=== PATIENT | female | born 1985 | race American Indian/Alaskan Native ===

== ENCOUNTER 2018-12-22 13:50 | Emergency (ER) | payer MEDICAID ==
--- NOTE | 2018-12-22 14:22 | Emergency Department Report ---
Blank Doc - Documentation Documentation: history epilepsy on no medications and reports frequent short syncopal episodes. Also severe depression with suicidal ideation and visual hallucinations.
--- NOTE | 2018-12-22 14:39 | Emergency Department Report ---
ED General Adult HPI - General Chief complaint: Psych Stated complaint: ANXIETY Time Seen by Provider: 12/22/18 14:20 Source: patient, RN notes reviewed Mode of arrival: Ambulatory Limitations: No Limitations - History of Present Illness Initial comments: This is a 33-year-old female. The patient reports that she is not . The patient reports that she does not have a local primary care doctor. Patient reports that last month, she was admitted to [facility] for 5 days, for blood pressure control. She reports that she had a stress test, but does not recall the results of the tests, and indicates that she has high blood pressure. Patient presents to the emergency room, with a complaint of depression, and syncope. Patient reports that she was in her usual state of health this morning, when she thinks that she passed out. Prior to passing out, she denies headache, neck pain, chest pain, abdominal pain or shortness of breath. She denies leg pain, leg swelling. She also endorses depression, and a sense of hopelessness. The patient reports visual hallucinations, denies access to guns or firearms, is not homicidal, and indicates that "if something bad which happened to me, I wouldn't be upset." She would not specifically comment on suicidality to this provider per se, but she did indicate to the triage nurse that she was passively suicidal. The patient denies physical pain at this time. She reports that she may also have a history of seizures, but does not take antiepileptic drug medication that she is aware of. She thinks that her last seizure was years ago. She denies physical pain at this time. Her depression and constant, does not radiate anywhere, and is worsened by the aforementioned psychosocial factors, including her recent "syncope". -: Gradual Severity scale (0 -10): 0 Consistency: constant Improves with: other Worsens with: other Associated Symptoms: loss of appetite, malaise, syncope, weakness. denies: confusion - Related Data Home Medications Medication Instructions Recorded Confirmed Last Taken Metoprolol [Lopressor] 25 mg PO BID 12/22/18 12/22/18 Unknown Allergies Allergy/AdvReac Type Severity Reaction Status Date / Time No Known Allergies Allergy Verified 12/22/18 13:52 ED Review of Systems ROS: Stated complaint: ANXIETY Other details as noted in HPI Constitutional: malaise, weakness. denies: fever Eyes: denies: vision change ENT: denies: epistaxis Respiratory: denies: cough Cardiovascular: syncope. denies: chest pain Gastrointestinal: denies: abdominal pain, nausea, vomiting Genitourinary: denies: urgency, dysuria Neurological: weakness Psychiatric: depression, visual hallucinations. denies: homicidal thoughts ED Past Medical Hx - Past Medical History Hx Hypertension: Yes Hx Seizures: Yes Hx Asthma: Yes - Surgical History Additional Surgical History: fx r)tib - Social History Smoking Status: Never Smoker Substance Use Type: Alcohol - Medications Home Medications: Home Medications Medication Instructions Recorded Confirmed Last Taken Type Metoprolol [Lopressor] 25 mg PO BID 12/22/18 12/22/18 Unknown History ED Physical Exam - General Limitations: No Limitations General appearance: alert, in no apparent distress - Head Head exam: Present: atraumatic, normocephalic - Eye Eye exam: Present: normal appearance, PERRL, EOMI, other (visual acuity intact to finger counting, color perception, reading at a close distance). Absent: nystagmus - ENT ENT exam: Present: normal exam, normal orophraynx, mucous membranes moist, normal external ear exam - Neck Neck exam: Present: normal inspection, full ROM. Absent: tenderness, meningismus - Respiratory Respiratory exam: Present: normal lung sounds bilaterally. Absent: respiratory distress - Cardiovascular Cardiovascular Exam: Present: regular rate, normal rhythm, normal heart sounds. Absent: bradycardia, tachycardia, irregular rhythm, systolic murmur, diastolic murmur, rubs, gallop - GI/Abdominal GI/Abdominal exam: Present: soft. Absent: distended, tenderness, guarding, rebound, rigid, pulsatile mass - Extremities Exam Extremities exam: Present: normal inspection, full ROM, other (2+ pulses noted in the bilateral upper, lower extremities. Compartments soft. No long bony tenderness. The pelvis is stable.). Absent: pedal edema, joint swelling, calf tenderness - Back Exam Back exam: Present: normal inspection, full ROM. Absent: tenderness, CVA tenderness (R), paraspinal tenderness, vertebral tenderness - Neurological Exam Neurological exam: Present: alert, oriented X3, CN II-XII intact, other (Extraocular movements intact. Tongue midline. No facial droop. Facial sensation intact to light touch in the V1, V2, V3 distribution bilaterally. 5 and 5 strength in 4 extremities.. Sensation is intact to light touch in 4 extremities.). Absent: motor sensory deficit - Psychiatric Psychiatric exam: Present: depressed, anxious, flat affect. Absent: homicidal ideation - Skin Skin exam: Present: warm, dry, intact, normal color. Absent: rash ED Course Vital Signs 12/22/18 12/22/18 12/22/18 14:08 15:13 15:16 Temperature 98.0 F 98.2 F Pulse Rate 78 77 Respiratory 14 18 18 Rate Blood Pressure 113/80 Blood Pressure 134/88 [Left] O2 Sat by Pulse 100 99 100 Oximetry - Reevaluation(s) Reevaluation #1: 12/22/18 15:07 Differential diagnosis, including but not limited to: Orthostasis, vagal event, pulmonary embolus, structural cardiac disease, seizure, pseudoseizure, electrolyte derangements, depression, suicidality, mood disorder Assessment and plan: 33-year-old female with 2 complaints. Patient has a primary complaint of syncope and the secondary complaint of depression. Complaint #1; syncope: Patient is not tachycardic, not hypoxic, low risk by well's criteria, perc negative GCS of 15, NIH score of 0, clinically sober. We will attempt to obtain old medical records from [facility], we will obtain screening laboratory studies, noncontrast CT scan of the brain, place patient on a environmental monitoring specialist, and reassess. Given young age, unremarkable vital signs, patient at low risk for major adverse cardiac event. We will start her empirically on Keppra. Complaint #2: Depression, questionable suicidality. Patient will be placed on a 1013. A psychiatric consultation will be requested. We will reassess once the patient has completed her medical evaluation. Reevaluation #2: 12/22/18 17:10 We are still waiting for the patient's medical records to be sent over. Objective testing unremarkable. CT scan of the brain negative. Orthostatics negative. D-dimer negative. Patient resting comfortably, in the emergency room, for 3.5 hours, without recurrent event, or clinical decompensation. At this point in time, there does not appear to be in immediate medical contraindication to psychiatric evaluation, consultation, placement. The crisis team has been informed. Reevaluation #3: 12/22/18 18:56 X-ray of the chest is negative for acute disease. Hemodynamically stable. No events. Resting comfortably. No seizures noted. Patient has been in the emergency room for greater than 5 hours without an acute event. ED Medical Decision Making - Lab Data Result diagrams: 12/22/18 14:30 12/22/18 14:30 Vital Signs 12/22/18 14:08 Temperature 98.0 F Pulse Rate 78 Respiratory 14 Rate Blood Pressure 113/80 O2 Sat by Pulse 100 Oximetry Lab Results 12/22/18 12/22/18 Range/Units 14:30 14:30 WBC 6.4 (4.5-11.0) K/mm3 RBC 4.64 (3.65-5.03) M/mm3 Hgb 14.9 H (10.1-14.3) gm/dl Hct 43.2 H (30.3-42.9) % MCV 93 (79-97) fl MCH 32 (28-32) pg MCHC 34 (30-34) % RDW 15.8 H (13.2-15.2) % Plt Count 377 (140-440) K/mm3 Lymph % (Auto) 29.1 (13.4-35.0) % Cooper % (Auto) 7.8 H (0.0-7.3) % Eos % (Auto) 0.7 (0.0-4.3) % Baso % (Auto) 0.6 (0.0-1.8) % Lymph # 1.9 (1.2-5.4) K/mm3 Cooper # 0.5 (0.0-0.8) K/mm3 Eos # 0.0 (0.0-0.4) K/mm3 Baso # 0.0 (0.0-0.1) K/mm3 Seg Neutrophils % 61.8 (40.0-70.0) % Seg Neutrophils # 4.0 (1.8-7.7) K/mm3 HCG, Qual Negative (Negative) - EKG Data -: EKG Interpreted by Co EKG shows normal: sinus rhythm, axis, intervals, QRS complexes, ST-T waves - EKG Data When compared to previous EKG there are: previous EKG unavailable 12/22/18 15:09 Normal sinus, 75 bpm, normal axis, QTC prolonged, motion artifact, high left ventricular voltage, abnormal EKG, no prior for comparison, this is not consistent with ST elevation myocardial infarction. - Radiology Data Radiology results: pending, report reviewed, image reviewed Critical care attestation.: If time is entered above; I have spent that time in minutes in the direct care of this critically ill patient, excluding procedure time. ED Disposition Clinical Impression: Medical clearance for psychiatric admission Disposition: [id number]/TX-65 PSY HOSP/PSY UNIT Is pt being admited?: No Does the pt Need Aspirin: No Condition: Good Referrals: MARY KATE MCPHERSON MD [Primary Care Provider] - 3-5 Days
[2018-12-22 14:42] LABS: Basophils % (Auto) 0.6 % (0.0-1.8); Eosinophils % (Auto) 0.7 % (0.0-4.3); Hematocrit 43.2 % (30.3-42.9); Hemoglobin 14.9 gm/dl (10.1-14.3); Lymphocytes # (Auto) 1.9 K/mm3 (1.2-5.4); Lymphocytes % (Auto) 29.1 % (13.4-35.0); Mean Corpuscular HGB Conc 34 % (30-34); Mean Corpuscular Volume 93 fl (79-97); Monocytes # (Auto) 0.5 K/mm3 (0.0-0.8); Monocytes % (Auto) 7.8 % (0.0-7.3); Platelet Count 377 K/mm3 (140-440); Red Blood Count 4.64 M/mm3 (3.65-5.03); Red Cell Distribution Width 15.8 % (13.2-15.2)
[2018-12-22 15:10] LABS: Alanine Aminotransferase 21 units/L (7-56); Albumin 4.4 g/dL (3.9-5); BUN/Creatinine Ratio 18; Blood Urea Nitrogen 9 mg/dL (7-17); Calcium 8.6 mg/dL (8.4-10.2); Hemolysis Index 1
[2018-12-22 15:43] LABS: Bilirubin,Urine NEG (Negative); Blood,Urine NEG (Negative); Color,Urine Yellow (Yellow); Mucus,Urine FEW /HPF; Protein,Urine <15 mg/dL mg/dL (Negative); Urobilinogen,Urine < 2.0 mg/dL (<2.0)
[2018-12-22 15:48] LABS: Amphetamine Screen,Urine PRESUMPTIVE NEGATIVE; Benzodiazepines Screen,Urine PRESUMPTIVE NEGATIVE; Cannabinoid Screen,Urine PRESUMPTIVE NEGATIVE; Cocaine Screen,Urine PRESUMPTIVE NEGATIVE; Methadone Screen,Urine PRESUMPTIVE NEGATIVE; Opiate Screen,Urine PRESUMPTIVE NEGATIVE
--- NOTE | 2018-12-22 16:00 | XRay Report ---
PROCEDURE: XR CHEST ROUTINE 2V TECHNIQUE: PA and lateral views of the chest HISTORY: Medical Clearance Psych COMPARISONS: None FINDINGS: There is no evidence of infiltrate, pneumothorax or pleural fluid collection. The cardiomediastinal silhouette is normal in appearance. The bony structures are notable for mild dextrocurvature of the lower thoracic and upper lumbar spine . IMPRESSION: 1. No evidence of an acute pulmonary process. This document is electronically signed by Sandra Eugene MD., December 22 2018 03:57:44 PM ET
[2018-12-22] MEDS: KEPPRA PO SCH ×2 (16:27→21:48)
--- NOTE | 2018-12-22 16:46 | Cat Scan Report ---
PROCEDURE: CT HEAD/BRAIN WO CON TECHNIQUE: Computerized tomography of the head was performed without contrast material. Imaging was obtained in axial increments. CT DOSE LENGTH PRODUCT: 805.42 mGycm HISTORY: Medical Clearance Psych COMPARISONS: None . FINDINGS: The ventricular system is normal in size and configuration. There is no evidence for parenchymal volu me loss. There is no evidence for mass lesion, mass effect, midline shift, acute intracranial hemorrhage, or a cute ischemia/ infarction. No evidence for acute skull fracture is seen. No abnormality in the overlying scalp soft tissues is s een. Visualized paranasal sinuses are clear. IMPRESSION: No acute intracranial process noted. This document is electronically signed by Barbara Corona MD., December 22 2018 04:43:15 PM ET
[2018-12-22] MEDS ORDERED: ATIVAN IM PRN (17:12)
[2018-12-22] MEDS ORDERED: LOPRESSOR PO SCH (22:00)
[2018-12-23 02:24] VITALS: BP 118/79
== END 2018-12-23 05:51 ==
LOC: EEVIPCON 13:50 → ED 13:50
DX: F32.9 Major depressive disorder, single episode, unspecified (principal); R55 Syncope and collapse; R44.1 Visual hallucinations; I10 Essential (primary) hypertension; J45.909 Unspecified asthma, uncomplicated; Z98.890 Other specified postprocedural states
CPT/HCPCS: 36415; 70450; 71046; 80053; 80307; 81001; 82550; 83735; 84443; 84703; 85025; 85379; 93005; 93010; 99285; G0480; 80320

== ENCOUNTER 2019-09-01 19:00 | Emergency (ER) | payer MEDICAID ==
[2019-09-01 20:27] LABS: Basophils % (Auto) 0.9 % (0.0-1.8); Eosinophils % (Auto) 0.2 % (0.0-4.3); Hematocrit 45.2 % (30.3-42.9); Hemoglobin 15.4 gm/dl (10.1-14.3); Lymphocytes # (Auto) 1.2 K/mm3 (1.2-5.4); Lymphocytes % (Auto) 23.7 % (13.4-35.0); Mean Corpuscular HGB Conc 34 % (30-34); Mean Corpuscular Volume 97 fl (79-97); Monocytes # (Auto) 0.3 K/mm3 (0.0-0.8); Monocytes % (Auto) 6.7 % (0.0-7.3); Platelet Count 353 K/mm3 (140-440); Red Blood Count 4.69 M/mm3 (3.65-5.03); Red Cell Distribution Width 14.7 % (13.2-15.2)
[2019-09-01 20:30] LABS: BUN/Creatinine Ratio 13; Blood Urea Nitrogen 9 mg/dL (7-17); Calcium 9.5 mg/dL (8.4-10.2); Hemolysis Index 11
[2019-09-01 21:22] LABS: Bilirubin,Urine NEG (Negative); Blood,Urine NEG (Negative); Color,Urine Yellow (Yellow); Hyaline Casts,Urine 8 /LPF; Mucus,Urine FEW /HPF; Protein,Urine <15 mg/dL mg/dL (Negative); Urobilinogen,Urine < 2.0 mg/dL (<2.0)
[2019-09-01 21:23] LABS: HCG Qualitative,Urine Negative (Negative)
--- NOTE | 2019-09-01 22:14 | Emergency Department Report ---
ED Dizziness HPI - General Chief Complaint: Syncope Stated Complaint: SYNCOPY/DIZZINESS/NAUSEA Time Seen by Provider: 09/01/19 21:39 Source: patient, EMS Mode of arrival: Stretcher Limitations: No Limitations - History of Present Illness Initial Comments: 33-year-old female presents to ED with complaint of dizziness, near syncopal episodes earlier today. Patient reports this is common for her, has had multiple near syncopal events over the last 2 years, patient reports "about 20 times." Symptoms are worse when she is standing. Patient also reports she has not eaten anything today due to lack of appetite. She denies any chest pain prior to the episode, but states she fell a she cannot breathe. Patient currently is feeling much better. No trouble breathing at this time. She denies any alcohol, drug use. Patient states the past, these episodes have been triggered by stress. Patient reports current stressors in her life which may have caused her syncopal episode. Initial blood pressure was low per EMS. IV fluids given. MD Complaint: near syncope -: This morning Timing: intermittent Description: lightheadedness, near-syncope History of Same: Yes History of Trauma: No Severity: moderate Improves With: rest Worsens With: position Associated Symptoms: loss of appetite, shortness of breath. denies: chest pain, fever/chills - Related Data Home Medications Medication Instructions Recorded Confirmed Last Taken Metoprolol [Lopressor] 25 mg PO BID 12/22/18 12/22/18 Unknown Allergies Allergy/AdvReac Type Severity Reaction Status Date / Time No Known Allergies Allergy Verified 12/22/18 13:52 ED Review of Systems ROS: Stated complaint: SYNCOPY/DIZZINESS/NAUSEA Other details as noted in HPI Comment: All other systems reviewed and negative Constitutional: denies: chills, fever Respiratory: shortness of breath Cardiovascular: denies: chest pain, palpitations Gastrointestinal: denies: abdominal pain, nausea, vomiting Neurological: denies: headache ED Past Medical Hx - Past Medical History Previous Medical History?: Yes Hx Hypertension: Yes Hx Seizures: Yes Hx Asthma: Yes Additional medical history: Hypokalemia - Surgical History Past Surgical History?: Yes Additional Surgical History: fx r)tib - Social History Smoking Status: Current Every Day Smoker Substance Use Type: Alcohol - Medications Home Medications: Home Medications Medication Instructions Recorded Confirmed Last Taken Type Metoprolol [Lopressor] 25 mg PO BID 12/22/18 12/22/18 Unknown History ED Physical Exam - General Limitations: No Limitations General appearance: alert, in no apparent distress - Head Head exam: Present: atraumatic, normocephalic - Eye Eye exam: Present: normal appearance, PERRL, EOMI - ENT ENT exam: Present: mucous membranes moist - Neck Neck exam: Present: normal inspection - Respiratory Respiratory exam: Present: normal lung sounds bilaterally. Absent: respiratory distress - Cardiovascular Cardiovascular Exam: Present: regular rate, normal rhythm - GI/Abdominal GI/Abdominal exam: Present: soft. Absent: distended, tenderness - Extremities Exam Extremities exam: Present: normal inspection - Neurological Exam Neurological exam: Present: alert, oriented X3, CN II-XII intact. Absent: motor sensory deficit - Psychiatric Psychiatric exam: Present: normal affect, normal mood - Skin Skin exam: Present: warm, dry, intact, normal color ED Course Vital Signs 09/01/19 09/01/19 09/01/19 19:28 19:42 21:28 Temperature 99.3 F 99.3 F 98.7 F Pulse Rate 87 92 H 110 H Pulse Rate [ Lying] Pulse Rate [ Sitting] Pulse Rate [ Standing] Respiratory 18 18 23 Rate Blood Pressure 120/68 120/68 Blood Pressure 128/75 [Left] Blood Pressure [Lying] Blood Pressure [Sitting] Blood Pressure [Standing] O2 Sat by Pulse 98 98 100 Oximetry 09/01/19 09/01/19 09/01/19 21:30 22:00 22:30 Temperature Pulse Rate 87 101 H 102 H Pulse Rate [ Lying] Pulse Rate [ Sitting] Pulse Rate [ Standing] Respiratory 21 18 25 H Rate Blood Pressure 112/70 112/70 117/74 Blood Pressure [Left] Blood Pressure [Lying] Blood Pressure [Sitting] Blood Pressure [Standing] O2 Sat by Pulse 100 100 98 Oximetry 09/01/19 09/01/19 09/01/19 22:35 23:00 23:30 Temperature Pulse Rate 116 H 94 H Pulse Rate [ 97 H Lying] Pulse Rate [ 107 H Sitting] Pulse Rate [ 138 H Standing] Respiratory 21 20 Rate Blood Pressure 106/75 116/74 Blood Pressure [Left] Blood Pressure 106/70 [Lying] Blood Pressure 126/76 [Sitting] Blood Pressure 106/75 [Standing] O2 Sat by Pulse 99 100 Oximetry 09/01/19 09/02/19 09/02/19 23:59 00:00 00:30 Temperature Pulse Rate 91 H 90 88 Pulse Rate [ Lying] Pulse Rate [ Sitting] Pulse Rate [ Standing] Respiratory 18 20 17 Rate Blood Pressure 116/74 121/70 111/69 Blood Pressure [Left] Blood Pressure [Lying] Blood Pressure [Sitting] Blood Pressure [Standing] O2 Sat by Pulse 99 100 98 Oximetry ED Medical Decision Making - Lab Data Result diagrams: 09/01/19 19:52 09/01/19 19:52 - EKG Data -: EKG Interpreted by Me EKG shows normal: sinus rhythm, axis, intervals, QRS complexes, ST-T waves Rate: normal - EKG Data Interpretation: no acute changes - Medical Decision Making 33-year-old female with near syncopal episode earlier today. Patient has orthostatic dizziness when checked. Blood pressure drops and heart rate increases with standing. EKG is unremarkable. Labs showed that patient appears to be secondary dehydrated. IV fluids given. Patient feels much better at this time. Outpatient follow-up advised. Return precautions given. - Differential Diagnosis dehydration, anemia, arrhythmia Critical care attestation.: If time is entered above; I have spent that time in minutes in the direct care of this critically ill patient, excluding procedure time. ED Disposition Clinical Impression: Near syncope, Orthostatic dizziness, Dehydration Disposition: -01 TO HOME OR SELFCARE Is pt being admited?: No Condition: Stable Instructions: Dehydration (ED), Near Syncope (ED) Referrals: [facility] [Provider Group] - 3-5 Days DARREN CHRISTENSEN MD [Staff Physician] - 3-5 Days Time of Disposition: 00:50
[2019-09-01] MEDS ORDERED: SODIUM CHLORIDE 0.9% 1000 ML 1,000 ML IV ONE (22:39)
[2019-09-02 00:40] VITALS: BP 111/69
== END 2019-09-02 01:25 | disposition home or self-care (01) ==
LOC: ED 19:00
DX: E86.0 Dehydration (principal); R55 Syncope and collapse; R42 Dizziness and giddiness; I10 Essential (primary) hypertension; J45.909 Unspecified asthma, uncomplicated; E87.6 Hypokalemia; F17.200 Nicotine dependence, unspecified, uncomplicated; Z79.899 Other long term (current) drug therapy
CPT/HCPCS: 36415; 80048; 81001; 81025; 85025; 93005; 93010; 96360; 99284; J7030

== ENCOUNTER 2022-02-03 20:04 | Emergency (ER) | payer MEDICAID ==
[2022-02-03 20:49] LABS: Basophils % (Auto) 0.5 % (0.0-1.8); Eosinophils % (Auto) 0.7 % (0.0-4.3); Hematocrit 48.8 % (30.3-42.9); Hemoglobin 16.6 gm/dl (10.1-14.3); Lymphocytes # (Auto) 1.8 K/mm3 (1.2-5.4); Lymphocytes % (Auto) 24.3 % (13.4-35.0); Mean Corpuscular HGB Conc 34 % (30-34); Mean Corpuscular Volume 100 fl (79-97); Monocytes # (Auto) 0.6 K/mm3 (0.0-0.8); Monocytes % (Auto) 7.7 % (0.0-7.3); Platelet Count 293 K/mm3 (140-440); Red Blood Count 4.91 M/mm3 (3.65-5.03); Red Cell Distribution Width 12.5 % (13.2-15.2)
--- NOTE | 2022-02-03 20:58 | Emergency Department Report ---
ED General Adult HPI - General Chief complaint: Weakness Stated complaint: WEAK,NO APPETITE,FATIGUE Time Seen by Provider: 02/03/22 20:52 Source: patient Mode of arrival: Ambulatory Limitations: No Limitations - History of Present Illness Initial comments: Patient is 36 years old female with history of hypertension on lisinopril. Patient presented to the ER complaining of generalized body ache decreased appetite and diarrhea for the last 3 days. Patient denied any fever or chills. No chest pain or shortness of breath. -: days(s) Severity scale (0 -10): 7 - Related Data Home Medications Medication Instructions Recorded Confirmed Last Taken Metoprolol [Lopressor] 25 mg PO BID 12/22/18 12/22/18 Unknown Allergies Allergy/AdvReac Type Severity Reaction Status Date / Time No Known Allergies Allergy Verified 12/22/18 13:52 ED Review of Systems ROS: Stated complaint: WEAK,NO APPETITE,FATIGUE Other details as noted in HPI Comment: All other systems reviewed and negative Constitutional: denies: chills, fever Respiratory: denies: cough, shortness of breath, SOB with exertion, SOB at rest Cardiovascular: denies: chest pain, palpitations Gastrointestinal: nausea, diarrhea. denies: abdominal pain, vomiting, constipation, hematemesis, melena, hematochezia Musculoskeletal: denies: back pain Neurological: weakness. denies: headache, numbness, paresthesias, confusion ED Past Medical Hx - Past Medical History Previous Medical History?: Yes Hx Hypertension: Yes Hx Seizures: Yes Hx Asthma: Yes Additional medical history: Hypokalemia - Surgical History Past Surgical History?: Yes Additional Surgical History: fx r)tib - Social History Smoking Status: Current Every Day Smoker Substance Use Type: Alcohol - Medications Home Medications: Home Medications Medication Instructions Recorded Confirmed Last Taken Type Metoprolol [Lopressor] 25 mg PO BID 12/22/18 12/22/18 Unknown History ED Physical Exam - General Limitations: No Limitations General appearance: alert, in no apparent distress - Head Head exam: Present: atraumatic, normocephalic, normal inspection - Eye Eye exam: Present: normal appearance - ENT ENT exam: Present: normal exam, normal orophraynx, mucous membranes moist - Neck Neck exam: Present: normal inspection, full ROM. Absent: tenderness, meningismus - Respiratory Respiratory exam: Present: normal lung sounds bilaterally - Cardiovascular Cardiovascular Exam: Present: regular rate, normal rhythm, normal heart sounds - GI/Abdominal GI/Abdominal exam: Present: soft, normal bowel sounds. Absent: distended, tenderness, guarding, rebound, rigid, organomegaly, mass, bruit, pulsatile mass, hernia - Extremities Exam Extremities exam: Present: normal inspection, full ROM, normal capillary refill. Absent: tenderness, pedal edema, joint swelling, calf tenderness - Back Exam Back exam: Present: normal inspection, full ROM. Absent: CVA tenderness (R), CVA tenderness (L) - Neurological Exam Neurological exam: Present: alert, oriented X3, CN II-XII intact - Psychiatric Psychiatric exam: Present: normal mood - Skin Skin exam: Present: warm, intact, normal color ED Course Vital Signs 02/03/22 20:15 Temperature 98.7 F Pulse Rate 98 H Respiratory 18 Rate Blood Pressure 155/114 [Right] O2 Sat by Pulse 97 Oximetry ED Medical Decision Making - Lab Data Result diagrams: 02/03/22 20:36 02/03/22 20:36 - Medical Decision Making Patient is 36 years old female with history of hypertension on lisinopril. Patient presented to the ER complaining of generalized body ache decreased appetite and diarrhea for the last 3 days. Patient denied any fever or chills. No chest pain or shortness of breath. Patient found to be dehydrated. Patient received normal saline and Zofran. Labs reviewed and is unremarkable. Patient symptoms most likely related to a gastroenteritis. Patient given prescription for Zofran and advised to follow-up with her primary care physician in the next 2 to 3 days and to return to the ER if she develop any symptoms. Critical care attestation.: If time is entered above; I have spent that time in minutes in the direct care of this critically ill patient, excluding procedure time. ED Disposition Clinical Impression: Dehydration, Gastroenteritis Disposition: HOME / SELF CARE / HOMELESS Is pt being admited?: No Condition: Stable Instructions: Viral Gastroenteritis, Adult, Dehydration, Adult, [id number] Referrals: EDITH HORVATH MD [Staff Physician] - 3-5 Days
[2022-02-03 21:08] LABS: Alanine Aminotransferase 26 units/L (7-56); Albumin 4.5 g/dL (3.9-5); Blood Urea Nitrogen 9 mg/dL (7-17); Calcium 9.7 mg/dL (8.4-10.2); Hemolysis Index 25
[2022-02-03 21:21] LABS: BUN/Creatinine Ratio 13
[2022-02-03 21:39] LABS: Bilirubin,Urine NEG (Negative); Blood,Urine NEG (Negative); Color,Urine Amber (Yellow); Mucus,Urine 3+ /HPF
[2022-02-03 21:41] LABS: HCG Qualitative,Urine Negative (Negative)
[2022-02-03] MEDS ORDERED: SODIUM CHLORIDE 0.9% 1000 ML 1,000 ML IV ONE (21:57)
[2022-02-03] MEDS ORDERED: ONDANSETRON 4 MG/2 ML INJ IV ONE (21:57)
[2022-02-04 04:36] VITALS: BP 126/78
--- NOTE | 2022-02-05 10:00 | Electrocardiograph Report ---
[facility] Test Date: 2022-02-03 Test Time: 20:26:38 Pat Name: SHONDA MORRELL Department: Room: Gender: [employer]: NURSE : [id number] Requested By: ASIYA MENDES Order Number: [id number] Reading MD: Guy Garner Measurements Intervals [place] Rate: 100 P: 67 NC: 131 QRS: 26 QRSD: 79 T: 25 QT: 361 QTc: 468 Interpretive Statements Sinus tachycardia No previous ECG available for comparison Electronically Signed On 02-05-2022 10:00:33 EDT by Guy Garner
== END 2022-02-04 04:00 | disposition home or self-care (01) ==
LOC: ED 20:04
DX: E86.0 Dehydration (principal); K52.9 Noninfective gastroenteritis and colitis, unspecified; I10 Essential (primary) hypertension; J45.909 Unspecified asthma, uncomplicated; F17.200 Nicotine dependence, unspecified, uncomplicated; Z79.899 Other long term (current) drug therapy
CPT/HCPCS: 36415; 80053; 81001; 81025; 85025; 93005; 96361; 96374; 99283; J2405; J7030

== ENCOUNTER 2022-02-17 02:18 | Emergency (ER) | payer MEDICAID | END 2022-02-17 03:00 | disposition left against medical advice (07) | LOC: ED 02:18 | DX: N92.0 Excessive and frequent menstruation with regular cycle (principal); Z53.21 Procedure and treatment not carried out due to patient leaving prior to being seen by health care provider ==